=== PATIENT | female | born 1980 | race Caucasian/White ===

== ENCOUNTER 2016-08-06 11:53 | Emergency (ER) | payer OTHER ==
[2016-08-06] MEDS ORDERED: Morphine VIAL* 10 MG/ML 1 ML VIAL IM ONE (13:17)
--- NOTE | 2016-08-06 13:34 | UC ---
Abdominal Pain Female HPI - HPI Summary HPI Summary: 35 yo female with a 4 day hx of RLQ abd pain nausea anorexia no vomiting no diarrhea has felt feverish no UTI symptoms now with right sided back pain has had a hysterectomy - History of Current Complaint Chief Complaint: UCAbdominalPain Stated Complaint: ABDOMINAL AND BACK PAIN Time Seen by Provider: 08/06/16 13:08 Hx Obtained From: Patient Hx Last Menstrual Period: 08 of january Onset/Duration: Gradual Onset, Lasting Days - 4 Timing: Constant Severity Initially: Moderate Severity Currently: Severe Pain Intensity: 8 Pain Scale Used: 0-10 Numeric Location: Discrete At: RLQ Radiates: Yes Radiates to: Back Character: Aching, Dull Aggravating Factor(s): Movement Alleviating Factor(s): Nothing Associated Signs and Symptoms: Positive: Diaphoresis, Fever, Back Pain, Nausea Allergies/Adverse Reactions: Allergies Allergy/AdvReac Type Severity Reaction Status Date / Time No Known Allergies Allergy Verified 08/06/16 12:09 Home Medications: Home Medications NK [No Home Medications Reported] 08/06/16 [History Confirmed 08/06/16] PMH/Surg Hx/FS Hx/Imm Hx Previously Healthy: Yes Endocrine History Of: Denies: Diabetes, Thyroid Disease Cardiovascular History Of: Denies: Cardiac Disorders, Hypertension, Pacemaker/ICD Respiratory History Of: Denies: COPD, Asthma GI/ History Of: Denies: Gastroesophageal Reflux, Ulcer, Renal Disease Neurological History Of: Denies: CVA, Dementia, Seizures Cancer History Of: Denies: Breast Cancer Other History Of: Negative For: Anticoagulant Therapy - Surgical History Surgical History: Yes Surgery Procedure, Year, and Place: Tonsillectomy, laparoscopy, hysteroscopy. - Family History Known Family History: Positive: Hypertension - Social History Alcohol Use: None Substance Use Type: None Smoking Status (MU): Heavy Every Day Tobacco Smoker Type: Cigarettes Amount Used/How Often: 1/2 ppd Review of Systems Constitutional: Fever Skin: Negative Eyes: Negative ENT: Negative Respiratory: Negative Cardiovascular: Negative Gastrointestinal: Abdominal Pain Genitourinary: Negative Motor: Negative Neurovascular: Negative Musculoskeletal: Negative Neurological: Negative Psychological: Negative All Other Systems Reviewed And Are Negative: Yes Physical Exam Triage Information Reviewed: Yes Appearance: Well-Appearing, No Pain Distress, Well-Nourished Vital Signs: Initial Vital Signs Temp 97.9 F 08/06/16 12:05 Pulse 61 08/06/16 12:05 Resp 18 08/06/16 12:05 BP 121/73 08/06/16 12:05 Pulse Ox 99 08/06/16 12:05 Vital Signs Reviewed: Yes Eyes: Positive: Conjunctiva Clear ENT: Negative: Nasal congestion, Nasal drainage, Trismus Neck: Positive: Supple Respiratory: Positive: Lungs clear, Normal breath sounds, No respiratory distress Cardiovascular: Positive: RRR, No Murmur Abdomen Description: Positive: No Organomegaly, Soft, CVA Tenderness (R), McBurney's Point Tenderness Bowel Sounds: Positive: Present Musculoskeletal: Positive: ROM Intact, No Edema Neurological: Positive: Alert Skin Exam: Normal Abd Pain Female Course/Dx - Course Course Of Treatment: I suggested starting IV fluids here and sending patient to [facility] ER via ambulance for evalution of this pain. Patient refused stating that she would never go to the [facility] "for anything". States she will go to [place]. I called [place] ED and gave report to attending (Dr. Woody). AMA form signed - Differential Dx/Diagnosis Provider Diagnoses: abdominal pain of uncertain cause Discharge - Discharge Plan Condition: Guarded Disposition: AGAINST MEDICAL ADVICE Referrals: Mindy Schaffer NP [Nurse Practitioner] -
[2016-08-06 14:01] VITALS: BP 111/63
== END 2016-08-06 14:02 | disposition left against medical advice (07) ==
LOC: UCEAST 11:53
DX: R10.31 Right lower quadrant pain (principal); R11.0 Nausea; F17.210 Nicotine dependence, cigarettes, uncomplicated
CPT/HCPCS: 81003; 96372; 99212; G0463; J2270

== ENCOUNTER → 2016-08-06 14:13 | Emergency (ER) | payer OTHER ==
[2016-08-06 14:39] VITALS: BP 126/77
== END | disposition left against medical advice (07) ==
LOC: ED 14:13
DX: R10.9 Unspecified abdominal pain (principal); Z53.21 Procedure and treatment not carried out due to patient leaving prior to being seen by health care provider

== ENCOUNTER 2019-03-27 18:22 | Emergency (ER) | payer OTHER ==
[2019-03-27 19:08] VITALS: BP 129/83
--- NOTE | 2019-03-27 19:10 | UC ---
FLU HPI - HPI Summary HPI Summary: 38 yo female presents with URI symptoms. She tells me that for the last 2 weeks she has had an intermittently productive cough with sore throat and b/l earache. She has been taking marie-seltzer, mucinex, and dayquill OTC with no relief. She is still smoking daily. Has felt feverish, but has not taken her temperature. Over the last 2-3 days has felt more fatigued and is not sleeping well due to cough. Denies SOB, chest pain, abdominal pain, n/v. - History of Current Complaint Chief Complaint: UCRespiratory Stated Complaint: COUGH AND ACHES Time Seen by Provider: 03/27/19 19:09 Hx Obtained From: Patient Hx Last Menstrual Period: 08 of january Onset/Duration: Gradual Onset Severity Currently: Moderate Severity Initially: Moderate Pain Intensity: 7 Pain Scale Used: 0-10 Numeric - Allergy/Home Medications Allergies/Adverse Reactions: Allergies Allergy/AdvReac Type Severity Reaction Status Date / Time No Known Allergies Allergy Verified 03/27/19 19:08 Home Medications: Home Medications D-Methorphan/PE/Acetaminophen [Vicks Dayquil Liquicaps] 2 each PO ONCE PRN 03/27 [History Confirmed 03/27/19] PMH/Surg Hx/FS Hx/Imm Hx - Additional Past Medical History Additional PMH: None Other History Of: Negative For: Anticoagulant Therapy - Surgical History Surgical History: Yes Surgery Procedure, Year, and Place: Tonsillectomy, laparoscopy, hysteroscopy, hysterectomy - Family History Known Family History: Positive: Hypertension - Social History Lives: With Family Alcohol Use: None Substance Use Type: None Smoking Status (MU): Current Every Day Smoker Type: Cigarettes Amount Used/How Often: 1 ppd Review of Systems All Other Systems Reviewed And Are Negative: No Constitutional: Positive: Negative Skin: Positive: Negative Eyes: Positive: Negative ENT: Positive: Sore Throat, Ear Ache Respiratory: Positive: Cough Cardiovascular: Positive: Negative Gastrointestinal: Positive: Negative Neurovascular: Positive: Negative Neurological: Positive: Negative Psychological: Positive: Negative Physical Exam - Summary Physical Exam Summary: GENERAL: NAD. WDWN. No pain distress. SKIN: No rashes, sores, lesions, or open wounds. HEENT: Head: AT/NC Eyes: Conjunctiva clear without inflammation or discharge. Ears: Hearing grossly normal. TMs intact, no bulging, erythema, or edema. Nose: Nasal mucosa pink and moist. NTTP maxillary and frontal sinus. Throat: Posterior oropharynx without exudates, erythema, or tonsillar enlargement. Uvula midline. NECK: Supple. Nontender. No lymphadenopathy. CHEST: Moderate wheezing throughout. No r/r. No accessory muscle use. Breathing comfortably and in no distress. CV: RRR. Pulses intact. Cap refill <2seconds NEURO: Alert. PSYCH: Age appropriate behavior. Triage Information Reviewed: Yes Vital Signs: Initial Vital Signs Temp 97.2 F 03/27/19 19:04 Pulse 64 03/27/19 19:04 Resp 16 03/27/19 19:04 BP 129/83 03/27/19 19:04 Pulse Ox 98 03/27/19 19:04 Laboratory Tests 03/27/19 19:23 Influenza A (Rapid) Negative Influenza B (Rapid) Negative Vital Signs Reviewed: Yes Diagnostics - Radiology CXR Radiology Interpretation Completed By: ED Physician Summary of Radiographic Findings: No PNA Flu Course/Dx - Course Course Of Treatment: CXR wet read negative. In the clinic she was given a duoneb treatment with good improvement of her symptoms. Significantly less wheezing and felt better overall. Suspect bronchitis. - Differential Dx/Diagnosis Provider Diagnosis: Bronchitis Discharge ED - Sign-Out/Discharge Documenting (check all that apply): Patient Departure All imaging exams completed and their final reports reviewed: No - Discharge Plan Condition: Stable Disposition: HOME Prescriptions: Albuterol HFA INHALER* [Ventolin HFA Inhaler*] 1 puff INH Q6H PRN #1 mdi PRN Reason: Sob/Wheezing Azithromycin TAB* [Zithromax TAB (Z-NEYMAR) 250 mg #6 tabs] 2 tab PO .TODAY, THEN 1 DAILY #1 neymar predniSONE TAB* [Deltasone 20 MG TAB*] 40 mg PO DAILY #10 tab Patient Education Materials: Acute Bronchitis (ED) Forms: *Work Release Referrals: Meseret Rangel MD [Primary Care Provider] - Additional Instructions: If you develop a fever, shortness of breath, chest pain, new or worsening symptoms - please call your PCP or go to the ED immediately. Please try to cut back on smoking - Billing Disposition and Condition Condition: STABLE Disposition: Home - Attestation Statements Provider Attestation: Per institutional requirements, I have reviewed the chart, however, I was not consulted specifically or made aware of this patient by the midlevel provider. I did not personally evaluate, interact with , or disposition this patient.
[2019-03-27] MEDS ORDERED: Albuterol/Ipratropium NEB.SOL* Albuterol 2.5 MG/Ipratropium 0.5 MG 3 ML INH ONE (19:14)
[2019-03-27 19:35] LABS: Influenza A Molecular NEGATIVE (Negative); Influenza B Molecular NEGATIVE (Negative)
--- NOTE | 2019-03-28 09:58 | UC ---
- Progress Note Progress Note: Reviewed results of Dr Fox's report of chest xray: "No findings of acute cardiopulmonary disease.", same as more read. No change in management based on xray. Course/Dx - Diagnoses Provider Diagnoses: Bronchitis Discharge ED - Sign-Out/Discharge Documenting (check all that apply): Post-Discharge Follow Up All imaging exams completed and their final reports reviewed: Yes - Discharge Plan Condition: Stable Disposition: HOME Prescriptions: Albuterol HFA INHALER* [Ventolin HFA Inhaler*] 1 puff INH Q6H PRN #1 mdi PRN Reason: Sob/Wheezing Azithromycin TAB* [Zithromax TAB (Z-NEYMAR) 250 mg #6 tabs] 2 tab PO .TODAY, THEN 1 DAILY #1 neymar predniSONE TAB* [Deltasone 20 MG TAB*] 40 mg PO DAILY #10 tab Patient Education Materials: Acute Bronchitis (ED) Forms: *Work Release Referrals: Meseret Rangel MD [Primary Care Provider] - Additional Instructions: If you develop a fever, shortness of breath, chest pain, new or worsening symptoms - please call your PCP or go to the ED immediately. Please try to cut back on smoking - Billing Disposition and Condition Condition: STABLE Disposition: Home
== END 2019-03-27 19:50 | disposition home or self-care (01) ==
LOC: UCEAST 18:22
DX: J40 Bronchitis, not specified as acute or chronic (principal); H92.03 Otalgia, bilateral; F17.210 Nicotine dependence, cigarettes, uncomplicated
CPT/HCPCS: 71046; 99212; A9270-GY; G0463